=== PATIENT | female | born 1985 | race Caucasian/White ===

== ENCOUNTER → 2016-05-10 | Outpatient (CLI) | payer OTHER | LOC: OD 13:25 | PROVIDERS: ATTEND Allergy & Immunology | DX: J32.9 Chronic sinusitis, unspecified (principal) | CPT/HCPCS: 70220 ==

== ENCOUNTER 2020-02-17 07:14 | Day surgery (SDC) | payer BC, OTHER ==
[~2020-02-17 07:14] MED LIST: LIDOCAINE 2% INJ-PF (20 MG/ML) 10 ML AMPUL ONE; PROPOFOL INJ 200 MG/20 ML VIAL IV ONE
[2020-02-17 09:27] VITALS: BP 115/76
--- NOTE | 2020-02-17 11:27 | Operative Report ---
Operative Report DATE OF SURGERY: 02/17/20 Operative Report: The risk, benefits and alternatives of the procedure including the risk of bleeding, perforation requiring surgery have been explained to the patient in detail and informed consent has been obtained. Patient is taken back to the endoscopy suite and placed in the left, lateral decubital position. Timeout was called. Propofol medication is administered. Rectal examination is done which did not reveal any masses, tears or fissures. An Olympus videoscope was introduced into the patient's rectum. Scope was then carefully advanced all the way to the cecum. Cecum was identified by the usual anatomical landmarks including the ileocecal valve as well as the appendiceal office. Photodocumentation is obtained. Scope was then sequentially pulled back via the various segments of the colon including the ascending colon, hepatic flexure, transverse colon, splenic flexure, descending colon and finally into the rectosigmoid portions of the colon. Retroflexion maneuver is performed. The risks benefits and alternatives of the procedure explained to the patient in detail and informed consent is obtained.A GIF Olympus video scope was inserted into the patient's mouth and hypopharynx, the esophagus is identified intubated and insufflated, the scope was then advanced through the esophagus stomach and duodenum ,retroflexion maneuver is done, the esophagus stomach and first and second portions of the duodenum examined PREOPERATIVE DIAGNOSIS: Change in bowel habits. Dysphagia POSTOPERATIVE DIAGNOSIS: Status post biopsy in the cecum adjacent to the appendiceal office for possible polyp. Gastritis status post biopsy. Esophagitis status post biopsy OPERATION: Colonoscopy with biopsy. EGD with biopsy. SURGEON: EMELI MADRID ANESTHESIA: LMAC TISSUE REMOVED OR ALTERED: As noted above. COMPLICATIONS: None. ESTIMATED BLOOD LOSS: None. INTRAOPERATIVE FINDINGS: As noted above. PROCEDURE: Patient tolerated the procedure well. No immediate postprocedure complications are noted. Patient is discharged in good condition. Discharge date 02/17/2020. Discharge diet: Regular. Discharge activity: Regular. 2 to 3-week follow-up to discuss findings. Patient is instructed to call the office or proceed to the emergency room should there be any further problems or questions. Wait on the pathology. If positive may need 3 to 5-year surveillance colonoscopy.
== END 2020-02-17 09:40 | disposition home or self-care (01) ==
LOC: END 07:14
PROVIDERS: ATTEND Internal Medicine Gastroenterology
DX: K52.89 Other specified noninfective gastroenteritis and colitis (principal); K62.89 Other specified diseases of anus and rectum; K29.70 Gastritis, unspecified, without bleeding; K20.90 Esophagitis, unspecified without bleeding; K59.00 Constipation, unspecified; F90.0 Attention-deficit hyperactivity disorder, predominantly inattentive type; Z03.818 Encounter for observation for suspected exposure to other biological agents ruled out; Z83.79 Family history of other diseases of the digestive system; Z79.899 Other long term (current) drug therapy
CPT/HCPCS: 43239; 45380; 88342 ×2; 88305 ×2; 00813; U0003; J2704; J3490; C9803; 813; 87635

== ENCOUNTER 2020-03-02 11:51 | Emergency (ER) | payer BC, OTHER ==
[2020-03-02] MEDS ORDERED: MECLIZINE HCL 25 MG TABLET PO ONE (12:47)
[2020-03-02] MEDS ORDERED: NORMAL SALINE 1000 ML 1,000 ML IV ONE (12:47)
[2020-03-02] MEDS ORDERED: ONDANSETRON 4 MG TAB.RAPDIS PO ONE (12:47)
--- NOTE | 2020-03-02 12:48 | ER Document Report ---
ED Medical Screen (RME) - General Chief Complaint: Dizziness Stated Complaint: DIZZINESS,BLURRED VISION Time Seen by Provider: 03/02/20 12:42 Primary Care Provider: JANELLE AUGUST DO [Primary Care Provider] - Follow up as needed Notes: Patient presents complaining of history of right ear pain with loss of balance for the past week. Patient states today the pain is better to the right ear although she does have frontal headache pain off and on for the past 4 days. Patient does report nausea without vomiting. Patient denies any underlying chronic medical problems. Patient states dizziness is worse with position changes. I have greeted and performed a rapid initial assessment of this patient. A comprehensive ED assessment and evaluation of the patient, analysis of test results and completion of the medical decision making process will be conducted by additional ED providers. TRAVEL OUTSIDE OF THE [place] IN LAST 30 DAYS: No - Related Data Allergies/Adverse Reactions: amoxicillin [Amoxicillin] Allergy (Verified 03/02/20 12:30) emesis cefaclor [From Ceclor] Allergy (Verified 03/02/20 12:30) emesis Past Medical History - Social History Chew tobacco use (# tins/day): No Drug Abuse: None - Past Medical History Cardiac Medical History: Denies: Hx Coronary Artery Disease, Hx Heart Attack, Hx Hypertension Pulmonary Medical History: Denies: Hx Asthma, Hx Bronchitis, Hx COPD, Hx Pneumonia Neurological Medical History: Denies: Hx Cerebrovascular Accident, Hx Seizures Musculoskeltal Medical History: Denies Hx Arthritis Psychiatric Medical History: Reports: Hx Attention Deficit Hyperactivity Disorder Past Surgical History: Reports: Hx Orthopedic Surgery - left knee, Hx To nsillectomy - Immunizations Hx Diphtheria, Pertussis, Tetanus Vaccination: Yes Physical Exam - Vital signs Vitals: Temp Pulse Resp BP Pulse Ox 98.7 F 72 16 120/74 100 03/02/20 11:57 03/02/20 11:57 03/02/20 11:57 03/02/20 11:57 03/02/20 11:57 - Cardiovascular Rhythm: Regular Heart sounds: S1 appreciated, S2 appreciated - Neurological Neuro grossly intact: Yes Cognition: Normal Orientation: AAOx4 [place] Coma Scale Eye Opening: Spontaneous [place] Coma Scale Verbal: Oriented [place] Coma Scale Motor: Obeys Commands Krystle Coma Scale Total: 15 Course - Vital Signs Vital signs: Temp Pulse Resp BP Pulse Ox 98.7 F 72 16 120/74 100 03/02/20 11:57 03/02/20 11:57 03/02/20 11:57 03/02/20 11:57 03/02/20 11:57 Doctor's Discharge - Discharge Referrals: JANELLE AUGUST, [Primary Care Provider] - Follow up as needed
[2020-03-02 13:57] LABS: ABSOLUTE EOSINOPHILS # (AUTO) 0.1 10^3/uL (0.0-0.6); ABSOLUTE LYMPHOCYTES (AUTO) 1.6 10^3/uL (0.5-4.7); ABSOLUTE MONOCYTES (AUTO) 0.4 10^3/uL (0.1-1.4); ABSOLUTE NEUT (AUTO) 4.2 10^3/uL (1.7-8.2); BASOPHILS % (AUTO) 0.6 % (0-2); EOSINOPHILS % (AUTO) 1.1 % (0-6); HEMATOCRIT 42.9 % (36.0-47.0); HEMOGLOBIN 14.8 g/dL (12.0-15.5); LYMPHOCYTES % (AUTO) 24.9 % (13-45); MEAN CORPUSCULAR HEMOGLOBIN 31.7 pg (27.0-33.4); MEAN CORPUSCULAR HGB CONC 34.6 g/dL (32.0-36.0); MEAN CORPUSCULAR VOLUME 92 fl (80-97); MONOCYTES % (AUTO) 6.5 % (3-13); PLATELET COUNT 259 10^3/uL (150-450); RED BLOOD COUNT 4.68 10^6/uL (3.72-5.28); RED CELL DISTRIBUTION WIDTH 11.7 % (11.5-14.0); SEGMENTED NEUTROPHILS % (AUTO) 66.9 % (42-78); TOTAL CELLS COUNTED % (AUTO) 100 %; WHITE BLOOD COUNT 6.3 10^3/uL (4.0-10.5)
--- NOTE | 2020-03-02 14:07 | EKG REPORT ---
SEVERITY:- NORMAL ECG - SINUS RHYTHM : Confirmed by: Rafael Willett MD 02-Mar-2020 14:06:11
[2020-03-02 14:13] LABS: ALBUMIN 4.9 g/dL (3.5-5.0); ALKALINE PHOSPHATASE 66 U/L (38-126); ANION GAP 7 (5-19); ASPARTATE AMINO TRANSFERASE 27 U/L (14-36); BILIRUBIN,DIRECT 0.1 mg/dL (0.0-0.4); BILIRUBIN,TOTAL 0.5 mg/dL (0.2-1.3); BLOOD UREA NITROGEN 10 mg/dL (7-20); CARBON DIOXIDE 30 mmol/L (22-30); CHLORIDE 102 mmol/L (98-107); GLUCOSE 82 mg/dL (75-110); POTASSIUM 4.9 mmol/L (3.6-5.0)
[2020-03-02] MEDS ORDERED: DIPHENHYDRAMINE HCL 50 MG/ML VIAL IV ONE (16:25)
[2020-03-02] MEDS ORDERED: METOCLOPRAMIDE HCL INJ/PF 10 MG/2 ML SDV IV ONE (16:25)
[2020-03-02] MEDS ORDERED: KETOROLAC TROMETHAMINE INJ/PF 30 MG/1 ML SDV IV ONE (16:25)
--- NOTE | 2020-03-02 17:39 | ER Document Report ---
ED General - General Chief Complaint: Dizziness Stated Complaint: DIZZINESS,BLURRED VISION Time Seen by Provider: 03/02/20 12:42 Primary Care Provider: JANELLE AUGUST DO [Primary Care Provider] - Follow up as needed TRAVEL OUTSIDE OF THE [place] IN LAST 30 DAYS: No - HPI Notes: Patient is a 34-year female with no medical history who presents with dizziness and nausea for the past 3 days. She reports a worsening of her symptoms whenever she turns her head quickly or changes positions. She reports but denies vomiting, fever, diarrhea, abdominal pain, chest pain, and shortness of breath. She states she had ear pain 2 weeks ago but this is resolved and she denies any hearing loss. - Related Data Allergies/Adverse Reactions: amoxicillin [Amoxicillin] Allergy (Verified 03/02/20 12:30) emesis cefaclor [From Ceclor] Allergy (Verified 03/02/20 12:30) emesis Past Medical History - General Information source: Patient - Social History Smoking Status: Never Smoker Chew tobacco use (# tins/day): No Drug Abuse: None Family History: Reviewed & Not Pertinent Patient has homicidal ideation: No - Past Medical History Cardiac Medical History: Denies: Hx Coronary Artery Disease, Hx Heart Attack, Hx Hypertension Pulmonary Medical History: Denies: Hx Asthma, Hx Bronchitis, Hx COPD, Hx Pneumonia Neurological Medical History: Denies: Hx Cerebrovascular Accident, Hx Seizures Musculoskeletal Medical History: Denies Hx Arthritis Psychiatric Medical History: Reports: Hx Attention Deficit Hyperactivity Disorder Past Surgical History: Reports: Hx Orthopedic Surgery - left knee, Hx Tonsillectomy - Immunizations Hx Diphtheria, Pertussis, Tetanus Vaccination: Yes Review of Systems - Review of Systems Constitutional: No symptoms reported EENT: See HPI Cardiovascular: No symptoms reported Respiratory: No symptoms reported Gastrointestinal: See HPI Genitourinary: No symptoms reported Female Genitourinary: No symptoms reported Musculoskeletal: No symptoms reported Skin: No symptoms reported Hematologic/Lymphatic: No symptoms reported Neurological/Psychological: See HPI Physical Exam - Vital signs Vitals: Temp Pulse Resp BP Pulse Ox 98.7 F 72 16 120/74 100 03/02/20 11:57 03/02/20 11:57 03/02/20 11:57 03/02/20 11:57 03/02/20 11:57 - Notes Notes: PHYSICAL EXAMINATION: VITALS: Vitals reviewed and within normal limits. GENERAL: Well-appearing, well-nourished and in no acute distress. HEAD: Atraumatic, normocephalic. EYES: Pupils equal, round, and reactive to light, extraocular movements intact, sclera anicteric, conjunctiva are normal. ENT: Nares patent. Moist mucous membranes. Oropharynx clear without exudates. NECK: Normal range of motion, supple without lymphadenopathy. LUNGS: Breath sounds clear to auscultation bilaterally and equal. No wheezes, rales, or rhonchi. HEART: Regular, rate, and rhythm without murmurs. ABDOMEN: Soft, nontender, normoactive bowel sounds. No guarding, no rebound. No masses appreciated. EXTREMITIES: Normal range of motion, no pitting or edema. No cyanosis. NEUROLOGICAL: No focal neurological deficits. Moves all extremities spontaneously and on command. PSYCH: Normal mood, normal affect. SKIN: Warm, Dry, normal turgor, no rashes or lesions noted. Course - Re-evaluation Re-evalutation: Presentation of vertigo that appears most consistent with a benign peripheral vertigo. Patient has no abnormal findings on exam. Normal cerebellar testing, steady even gait. Able to walk on heels and toes. Normal proprioception. Patient is not an elevated risk for a cerebellar infarction given age, absence of significant risk factors. Patient did have improvement of symptoms here in the emergency department with meclizine. She also had improvement of her headache with a migraine cocktail. Suspect likely acute vestibular neuritis. I do not believe neurologic imaging is indicated at this time based on physical examination and clinical history. Patient will be discharged with recommendations to return should their symptoms worsen or they develop new concerning symptoms. - Vital Signs Vital signs: Temp Pulse Resp BP Pulse Ox 98.7 F 72 16 115/77 100 03/02/20 11:57 03/02/20 16:33 03/02/20 11:57 03/02/20 16:33 03/02/20 11:57 - Laboratory Result Diagrams: 03/02/20 13:15 03/02/20 13:15 Discharge - Discharge Clinical Impression: Dizziness, Nausea Headache Qualifiers: Headache type: unspecified Headache chronicity pattern: unspecified pattern Intractability: not intractable Qualified Code(s): R51.9 - Headache, unspecified Condition: Stable Disposition: HOME, SELF-CARE Instructions: Antinausea Medication ([facility]), Dizziness ([facility]), Meclizine ([facility]) Prescriptions: Ondansetron [Zofran Odt 4 mg Tablet] 1 - 2 tab PO Q4HP PRN #15 tab.rapdis PRN Reason: Meclizine HCl [Motion Relief] 25 mg PO TID PRN #21 tablet PRN Reason: Referrals: JANELLE AUGUST DO [Primary Care Provider] - Follow up as needed
[2020-03-02 18:05] VITALS: BP 110/71
== END 2020-03-02 18:03 | disposition home or self-care (01) ==
LOC: ER 11:51
DX: R42 Dizziness and giddiness (principal); R11.0 Nausea; R51.9 Headache, unspecified; Z88.0 Allergy status to penicillin; Z88.1 Allergy status to other antibiotic agents
CPT/HCPCS: 93005; 99284; 96361; 96374; 96375; 36415; 84703; 85025; 80053; 93010; J1200; S0119; J1885; J2765; J7030